=== PATIENT | female | born 1985 | race Caucasian/White ===

== ENCOUNTER 2016-10-19 04:46 | Inpatient (IN) | payer OTHER ==
--- NOTE | 2016-10-16 12:35 | HP ---
JAMAICA MIDDLETON : 1985 DATE OF ADMISSION: 10/19/2016 HISTORY OF PRESENT ILLNESS: Jamaica Middleton is a 31-year-old female with an estimated date of delivery of October 26, 2016. She will be 39 weeks at the time of her repeat section. She is admitted for a repeat section. Risks, reasons, complications, living will, alternatives were all discussed, all in lay person's terms and all questions were answered. OB HISTORY: 4, para 1, 0/2/1, on section and two spontaneous abortions, no dilation and curettages were done at the time. UX LEAD HISTORY: Menarche 9 times 28 times 7. She has a history of type 2 herpes and a history of endometriosis. PAST MEDICAL HISTORY: Positive for occasional asthma. She does not use any medications. ALLERGIES: NONE. FAMILY HISTORY: Positive for Down syndrome in a cousin. SOCIAL HISTORY: Nonsmoker, nondrinker and occasional marijuana use. PAST SURGICAL HISTORY: 1. section with a postoperative infection. 2. Laparoscopy for endometriosis. She states that surgeon left instrument in the abdomen and needed to return to the operating room with that laparoscopy. REVIEW OF SYSTEMS: Baby is moving and noncontributory otherwise. PHYSICAL EXAM: GENERAL: A healthy female in no acute distress, multiple tattoos noted. HEENT: Normal. NECK: Supple. Thyroid not palpable. BREASTS : Soft, no masses. HEART: Regular sinus rhythm, no murmurs. LUNGS: Clear. ABDOMEN: Gravid, Pfannenstiel incision present. heart present on last exam. Fetus measuring 38 cm, estimated weight 6.5 pounds. PELVIC: External genitalia healthy. Speculum exam showed white discharge. Nitrazine was negative on last exam. Clinical pelvimetry was narrow. Cervix was closed, 40% effaced, vertex -3. IMPRESSION: Previous section and history of herpes and borderline pelvic outlet in term . PLAN: Plan is a repeat lower segment section. Patient did request a section. She was offered a trial of labor and did not want to do that.
[2016-10-19] MEDS ORDERED: LACTATED RINGERS 1,000 ML ONE (05:00)
[2016-10-19] MEDS ORDERED: IV START KIT ONE (05:00)
[2016-10-19] MEDS ORDERED: CEFAZOLIN SODIUM 2 GRAM DUPLEX 2 G in Premix (D5W) 50 ml 1 EACH IV PRN (05:27)
[2016-10-19] MEDS ORDERED: LACTATED RINGERS 1,000 ML IV SCH (05:30)
[2016-10-19 05:47] LABS: HEMATOCRIT 36.4 % (37.0-47.0); HEMOGLOBIN 12.5 gm/l (12.0-16.0); MEAN CELL VOLUME 94.5 fl (81.0-99.0); MEAN CORPUSCULAR HEMOGLOBIN 32.5 pg (27.0-31.0); MEAN CORPUSCULAR HGB CONC 34.3 g/dl (33.0-37.0)
[2016-10-19 06:06] VITALS: BMI 29.6
[2016-10-19 06:12] LABS: AMPHETAMINES/METHAMPHETAMINES NEGATIVE (NEGATIVE); COCAINE NEGATIVE (NEGATIVE); MARIJUANA POSITIVE (NEGATIVE); METHADONE NEGATIVE (NEGATIVE); OPIATES NEGATIVE (NEGATIVE); TRICYCLIC ANTIDEPRESSANTS NEGATIVE (NEGATIVE)
[2016-10-19] MEDS ORDERED: CEFAZOLIN SODIUM 2 GRAM DUPLEX 50 ML IV ONE (06:44)
[2016-10-19] MEDS ORDERED: MORPHINE SULFATE (DURAMORPH) 1 MG/ML 10ML AMP ONE (07:03)
[2016-10-19] MEDS ORDERED: SPINAL PROCEDURAL TRAY 1 EACH ONE (07:03)
[2016-10-19] MEDS ORDERED: PNEUMOCOCCAL 23-VAL P-SAC VAC 0.5 ML VIAL IM V ONE (07:55)
[2016-10-19] MEDS ORDERED: FLU VACC 2016-17 (36MO-64Y)/PF 60 MCG/0.5 ML SYRINGE IM V ONE (07:55)
[2016-10-19] MEDS ORDERED: BUPIVACAINE 0.75% SPINAL AMPUL 2 ML ONE (08:03)
[2016-10-19] MEDS ORDERED: ONDANSETRON 4 MG/2ML 2 ML VIAL ONE (08:03)
[2016-10-19] MEDS ORDERED: OXYTOCIN 10 UNITS/ML VIAL ONE (08:03)
[2016-10-19] MEDS ORDERED: LANOLIN 50 APPLIC/7G TUBE TP PRN (08:24)
[2016-10-19] MEDS ORDERED: DIPHENHYDRAMINE HCL 25 MG CAPSULE PO PRN (08:24)
[2016-10-19] MEDS ORDERED: DIPHENHYDRAMINE HCL 50 MG/1 ML VIAL IV PRN (08:24)
[2016-10-19] MEDS ORDERED: OXYCODONE/ACETAMINOPHEN 5/325 MG TABLET PO PRN (08:24)
[2016-10-19] MEDS ORDERED: ONDANSETRON 4 MG/2ML 2 ML VIAL IV PRN (08:24)
--- NOTE | 2016-10-19 08:35 | PCMBPN ---
Brief Post Op Note: Date of Procedure: 10/19/16 Start Time: Preoperative Diagnosis: 1. intrauterine at 39 weeks, previous cesarian section Postoperative Diagnosis: 1. Same Procedure: repeat lower segment cesarian section Surgeon: Leobardo Saavedra Assist:ms. lynn english Anesthesia: spinal, ms mchugh Findings: term sized uterus, both ovaries and tubes normal, clear amniotic fluid , live baby boy, lot position, placenta intact, 9/9 Condition: stable Complications: none IV Fluids: mLs of LR Urine Output: mLs Estimated Blood Loss: 200 mLs Tourniquet Time: N/A Specimens: N/A Implants: Drains: N/A closure: 4-0 prolene, subcuticular patient tolerated procedure well and was returned to recovery room in stable condition with watts draining clear yellow urine.
--- NOTE | 2016-10-19 09:23 | OP ---
Jamaica Dickerson : 1985 [id number] DATE OF SURGERY: 10/19/2016 NAME OF OPERATION: Repeat lower segment section. PREOPERATIVE DIAGNOSES: 1. Intrauterine at 39 weeks. 2. Previous section. POSTOPERATIVE DIAGNOSES: 1. Intrauterine at 39 weeks. 2. Previous section. WORKFLOW DEVELOPER: Dr. Leobardo Petty ANESTHESIA: Ms. Gonzales, Spinal. WAREHOUSE INCENTIVE SELECTOR: Ms. Romina Yousif DESCRIPTION OF PROCEDURE: Dictation begins with the patient in the supine position after receiving spinal anesthesia. The abdomen had been prepared with Chloraprep and draped in the usual manner for pfannenstiel incision. A Stewart was draining clear yellow urine. After a timeout was performed the skin was tested and found to be with complete anesthesia and then a pfannenstiel incision was made with a knife superior to the original incision. The knife was then used to dissect down to subcutaneous tissue to the rectus abdominis fascia which was nicked with the knife and carried laterally with Mcdowell scissors. All bleeding points were bovied. The superior portion of the fascia was grasped with Anna clamps. The median raphe divided with the Mcdowell scissors and a similar procedure was performed on the lower end of the incision. The muscle was split in mid portion. The peritoneum identified, picked up with two Naima clamps, divided in between with Metzenbaum scissors and then stretched laterally. Findings included a term size uterus. Both ovaries and tubes appeared normal. A Cristel retractor was inserted into the lower end of the incision and then the peritoneal reflection on the uterus was incised with a Metzenbaum scissors in a semicircular manner and the bladder flap was then bluntly dissected down. A knife was then used to make a lower uterine incision which was stretched laterally. There was clear amniotic fluid noted. A live baby boy was delivered from the LOT position. He was suctioned prior to the first breath and cried spontaneously. The cord was clamped with two Naima clamps, divided in between with a bandage scissors and the baby was given to the nursing team for care. was 9 and 9 at one and five minutes respectively. Cord blood was obtained and then the placenta was delivered manually and intact. The uterus was wiped clean of membranes and blood clots. T-clamps were placed at the 3, 6, 9, and 12 o'clock positions of the uterus. The uterus was closed in two layers with #1 Chromic continuous interlocking sutures, the second layer imbricating the first. Now with complete hemostasis and sponge and instrument count reported as correct the rectus abdominis muscles were reapproximated with interrupted sutures of 1 Chromic material. The fascia was closed in right and left halves with 1 Vicryl material locking the first stitch and that was done in a continuous suture. Subcutaneous bleeding points were bovied prior to closure of skin and then the skin was closed with a subcuticular 4-0 Prolene suture. Skin glue was placed over the incision and then Steri-Strips were applied. At this point, the operation was terminated. Estimated blood loss 200 mL. Patient tolerated procedure well and was returned to recovery room in stable condition with a Stewart draining clear yellow urine. FINAL DIAGNOSIS: As above. JOB: [id number]
[2016-10-19] MEDS ORDERED: KETOROLAC TROMETHAMINE 30 MG/ML 1 ML VIAL IV PRN (14:54)
[2016-10-19] MEDS: CALCIUM CARBONATE 500 MG TAB.CHEW PO PRN ×2 (15:21→21:25)
[2016-10-19] MEDS: ACETAMINOPHEN 325 MG TABLET PO PRN ×2 (16:35→22:27)
[2016-10-19] MEDS: DOCUSATE SODIUM 100 MG CAPSULE PO SCH (19:23)
[2016-10-19] MEDS: PRENATAL VIT/FE FUMARATE/FA 1 TABLET PO SCH (19:24)
[2016-10-19] MEDS: IBUPROFEN 800 MG TABLET PO PRN (21:12)
[2016-10-20] MEDS: DOCUSATE SODIUM 100 MG CAPSULE PO SCH ×4 (01:25→19:10)
[2016-10-20] MEDS: IBUPROFEN 800 MG TABLET PO PRN ×3 (03:04→19:09)
[2016-10-20] MEDS: ACETAMINOPHEN 325 MG TABLET PO PRN ×4 (05:34→23:10)
[2016-10-20 06:31] LABS: HEMATOCRIT 36.8 % (37.0-47.0); HEMOGLOBIN 12.4 gm/l (12.0-16.0)
--- NOTE | 2016-10-20 06:51 | PDOC44 ---
- Subjective Day: 1 (no complaints, watts removed, patient voided right after removal) Reports Pain Tolerable, Reports , Reports Lochia Light, Reports Tolerating Clear Liquids, Denies Flatus, Denies Nausea, Denies Vomiting, Denies Fever - Objective Temp Pulse Resp BP Pulse Ox 98.5 F 53 16 112/76 99 10/20/16 03:05 10/20/16 03:05 10/20/16 03:05 10/20/16 03:05 10/19/16 15:23 Lab Results 10/20/16 06:25 Hgb 12.4 Hct 36.8 L Current Medications Generic Name Dose Route Start Last Admin Trade Name Freq PRN Reason Stop Dose Admin Acetaminophen 650 mg 10/19/16 14:55 10/20/16 05:34 Tylenol PO 650 mg Q6H PRN Administration Pain or Temperature > 100.5 F Calcium Carbonate/Glycine 1,000 mg 10/19/16 15:06 10/19/16 21:25 Tums PO 1,000 mg Q6H PRN Administration Indigestion Diphenhydramine HCl 25 - 50 mg 10/19/16 08:24 Benadryl PO Q6H PRN Itching (Mild/Moderate) Diphenhydramine HCl 25 - 50 mg 10/19/16 08:24 Benadryl IV Q6H PRN Itching (Severe) Docusate Sodium 100 mg 10/19/16 09:00 10/20/16 01:25 Colace PO Not Given BID [facility] Emollient Ointment 1 applic 10/19/16 08:24 10/19/16 19:31 [id number] TP 1 tube PRN PRN Administration sore nipples Ibuprofen 800 mg 10/19/16 08:24 10/20/16 03:04 Motrin PO 800 mg Q8H PRN Administration Pain Ketorolac Tromethamine 30 mg 10/19/16 14:54 10/19/16 15:02 Toradol IV 30 mg Q6H PRN Administration Pain Multivi/Iron Carb/Fe Sulf/FA/Prenat 1 tab 10/19/16 09:00 10/19/16 19:24 Plus PO Not Given DAILY [facility] Ondansetron HCl 4 mg 10/19/16 08:24 Zofran IV Q6H PRN Nausea/Vomiting Oxycodone/Acetaminophen 1 - 2 tab 10/19/16 08:24 Percocet 5/325 PO Q4H PRN Pain (Moderate) Sodium Chloride 10 ml 10/19/16 15:07 10/19/16 22:30 Normal Saline 10ml Flush IV 10 ml PRN PRN Administration See Protocol - Physical Exam General: Afebrile, No Acute Distress Psych/Mental Status: Mood/Affect Appropriate, Judgment/Insight Intact, Bonding Well Lungs: Clear to Auscultation Bilaterally, Normal Air Movement Breast: Soft, Skin intact, Nipples Intact, No Tenderness, No Erythema, No Engorged Fundus: Firm, Midline, Below Umbilicus, Other (nontender) Abdomen: Normal Bowel Sounds, Other (hasn't passed flatus yet, no bowel movement yet), No Tenderness, No Distention Genitourinary: Other (voiding without difficulty), No Indwelling Urinary Cath Lochia: Light Extremities: No Tenderness Wound SLUBBER MACHINE OPERATOR: Dressing in Place, Dressing Clean/Dry/Intact Disposition: Stable
[2016-10-20] MEDS: PRENATAL VIT/FE FUMARATE/FA 1 TABLET PO SCH ×2 (07:44→12:17)
[2016-10-20] MEDS: CALCIUM CARBONATE 500 MG TAB.CHEW PO PRN ×2 (17:39→23:10)
[2016-10-21] MEDS: IBUPROFEN 800 MG TABLET PO PRN ×2 (03:47→11:43)
[2016-10-21] MEDS: DOCUSATE SODIUM 100 MG CAPSULE PO SCH ×2 (03:48→09:46)
[2016-10-21] MEDS: ACETAMINOPHEN 325 MG TABLET PO PRN ×2 (05:31→11:44)
[2016-10-21] MEDS: CALCIUM CARBONATE 500 MG TAB.CHEW PO PRN ×2 (05:31→11:43)
[2016-10-21 09:21] VITALS: BP 124/77
[2016-10-21] MEDS: PRENATAL VIT/FE FUMARATE/FA 1 TABLET PO SCH (09:46)
--- NOTE | 2016-10-21 11:37 | PDOC39B ---
Hospital Course: ADMIT DATE: 10/19/16 DISCHARGE DATE: 10/21/16 ADMISSION DIAGNOSES: intrauterine at 39 weeks, previous cesarian section PROCEDURES: repeat lower segment cesarian section HISTORY OF PRESENT ILLNESS: 31 year old G4 T1 L1 at 39 weeks 0 days presenting for repeat lower segment cesarian section HOSPITAL COURSE: The patient had an uneventful post course with exception of 0.5 cm skin separation and formed blood clot in middle of incision (0.25 cm), after patient showered and steri strips fell off, suture line intact with exception of this area. steri strips were replaced, there was 3cm sero- sanguenous staining on new steri strips and dressing on day of discharge. By day of discharge the patient is ambulating, eating, voiding, and passing flatus without difficulty. Pain is controlled and lochia is appropriate. She is [] - Physical Exam Vital Signs: Temp Pulse Resp BP Pulse Ox 98.3 F 66 12 124/77 99 10/21/16 08:57 10/21/16 08:57 10/21/16 08:57 10/21/16 08:57 10/19/16 15:23 General: Afebrile, No Acute Distress Psych/Mental Status: Mood/Affect Appropriate, Judgment/Insight Intact, Bonding Well Lungs: Clear to Auscultation Bilaterally, Normal Air Movement, Other ( occasional cough) Breast: Soft, Skin intact, Nipples Intact, No Tenderness, No Erythema, No Engorged Fundus: Firm, Midline, Below Umbilicus, Other (nontender) Abdomen: Normal Bowel Sounds, Other (flatus passed), No Tenderness, No Distention Genitourinary: Other (voiding without difficulty) Lochia: Light Extremities: No Tenderness Wound: Dressing in Place, Shadow Drainage, Well Approximated, Other (suture line intact with exception of 0.5cm opening with formed blood clot at skin edge to the left of center of pfannenstiel incision. this was observed after patient showered and steri strips applied at time of fell off. the area was cleaned, and new steri strips were applied. on 10/20/17 in evening, dressing had sero-sanguenous staining approximately half covered per rn. the steri strips were removed, then reapplied and a new dressing was applied. on morning of 10/21/16 steri strips were in place in a cross-ray fashion. there was (2cm) dried serosanguenous staining noted at same area on the steri strips and covering dressing. incision was palpated and pressed, there was no blood or serosanguenous fluid expressed. pressure dressing was placed, on discharge, patient was advised not to get dressing wet, and only take a sponge bath until her next office visit, notify md if any drainage, tenderness or pain. imp: superficial skin dehiscence, no active bleeding or drainage. no evidence of cellulitis or wound infection. hb is stable), No Dressing Clean/Dry/Intact - Discharge Diagnosis (1) delivery, delivered, current hospitalization Status: Acute (2) Wound dehiscence Status: Acute - Discharge Plan Condition: Stable Disposition: Home Additional Instructions: office visit one week, analgesics as needed. keep dressing clean and dry, notify md if any bleeding or discharge on dressing, sponge baths only until office visit. nothing in vagina x 6 weeks, no lifting or bending, may drive a car after office visit. Prescriptions: Ibuprofen [Motrin] 800 mg PO Q8H PRN #30 tablet PRN Reason: Pain Oxycodone HCl/Acetaminophen [PERCOCET 5/325 MG TABLET (SHF)] 1 - 2 tab PO Q4H PRN #14 tablet PRN Reason: Pain (Moderate)
[2016-10-21] MEDS ORDERED: DIPHTH,PERTUSS(ACELL),TET VAC 0.5 ML VIAL IM V ONE (12:51)
[2016-10-21] MEDS ORDERED: PNEUMOCOCCAL 23-VAL P-SAC VAC 0.5 ML VIAL IM V ONE (12:52)
[2016-10-21] MEDS ORDERED: FLU VACC 2016-17 (36MO-64Y)/PF 60 MCG/0.5 ML SYRINGE IM V ONE (12:53)
== END 2016-10-21 13:47 | disposition home or self-care (01) | DRG 766 ==
LOC: FBC 04:46
PROVIDERS: ADMIT Obstetrics & Gynecology; ATTEND Obstetrics & Gynecology
PROC: 10D00Z1 Extraction of Products of Conception, Low, Open Approach (ICD-10-PCS; principal; 2016-10-19)
DX: O34.211 Maternal care for low transverse scar from previous cesarean delivery (principal); Z3A.39 39 weeks gestation of pregnancy; Z37.0 Single live birth